=== PATIENT | male | born 1965 | race Caucasian/White ===

== ENCOUNTER 2022-08-14 11:16 | Emergency (ER) | payer BC, OTHER ==
[~2022-08-14] VITALS: Ht 188 cm; Wt 86.2 kg
[2022-08-14 11:19] VITALS: BP 198/119
--- NOTE | 2022-08-14 11:20 | NUR ---
PT PLACED IN BED 09 BY [facility]
--- NOTE | 2022-08-14 11:31 | NUR ---
wound superior to left eyebrow irrigated with ns x betadine solution.
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
[2022-08-14 11:38] VITALS: BP 191/124
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
--- NOTE | 2022-08-14 11:59 | NUR ---
Patient does not wish to proceed with medical care recommended by . Patient given information related to possible complications, up to and including , which could occur as a result of leaving hospital at this time. Patient verbalizes understanding of risks involved leaving against medical advice. Patient has signed AMA form.
--- NOTE | 2022-08-14 12:00 | NUR ---
PT LEFT WITHOUT SIGNING AMA FORM
== END 2022-08-14 12:00 | disposition left against medical advice (07) ==
LOC: MED 11:16
DX: S01.81XA Laceration without foreign body of other part of head, initial encounter (principal); W19.XXXA Unspecified fall, initial encounter; Y93.89 Activity, other specified; Y92.89 Other specified places as the place of occurrence of the external cause; Y99.8 Other external cause status
CPT/HCPCS: 99283